=== PATIENT | female | born 1940 | race Caucasian/White ===

== ENCOUNTER 2021-07-08 13:12 | Inpatient (IN) | payer MEDICARE, OTHER ==
[~2021-07-08] VITALS: Ht 167.6 cm; Wt 65.9 kg
[~2021-07-08 13:12] MED LIST: LISI-790 PO; PRED10TA PO; ROSU40TA22 PO
[2021-07-08] MEDS ORDERED: dexamethasone sod phosphate 10mg/ml inj IV STA (14:03)
[2021-07-08] MEDS ORDERED: normal saline 1000ML IV soln IVB ONE (14:05)
[2021-07-08] MEDS ORDERED: ondansetron/PF 4mg/2ml inj IV ONE (14:05)
[2021-07-08] MEDS ORDERED: CASIRIVIMAB/IMDEVIMAB inject. 10 ML in normal saline 100ml IV soln 100 ML IV ONE (14:05)
[2021-07-08 15:46] LABS: BASOPHILS % (AUTO) 0.1 % (0-1); EOSINOPHILS % (AUTO) 0 % (0-6); HEMATOCRIT 32.8 % (35.0-45.0); HEMOGLOBIN 11.3 g/dl (12.0-16.0); LYMPHOCYTES # (AUTO) 0.2 X10'3 (1.1-4.8); LYMPHOCYTES % (AUTO) 2.5 % (21-51); MEAN CORPUSCULAR HEMOGLOBIN 28.5 PG (27.0-31.0); MEAN CORPUSCULAR HGB CONC 34.4 g/dL (33.0-36.5); MEAN CORPUSCULAR VOLUME 82.7 FL (78-98); MEAN PLATELET VOLUME 7.3 FL (7.4-10.4); MONOCYTES # (AUTO) 0.3 X10'3 (0-0.9); MONOCYTES % (AUTO) 4.1 % (2-12); NEUTROPHILS # (AUTO) 7.5 X10'3 (1.8-7.7); NEUTROPHILS % (AUTO) 93.3 % (42-75); PLATELET COUNT 243 X10'3 (140-440); RED BLOOD COUNT 3.97 X10'6 (4.20-5.60); RED CELL DISTRIBUTION WIDTH 13.4 % (11.5-14.5)
[2021-07-08] MEDS ORDERED: ALBUTEROL INHALER 1 PUFF/90 MCG INHALER IH PRN (15:50)
[2021-07-08 16:03] LABS: ALANINE AMINOTRANSFERASE 83 U/L (12-78); ALBUMIN 2.9 G/DL (3.4-5.0); ALBUMIN/GLOBULIN RATIO 0.7 (1.1-1.5); ALKALINE PHOSPHATASE 93 IU/L (46-116); ANION GAP 11 (8-16); ASPARTATE AMINO TRANSFERASE 100 U/L (10-37); BILIRUBIN,TOTAL 0.5 MG/DL (0.1-1.0); BLOOD UREA NITROGEN 17 MG/DL (7-18); BUN/CREATININE RATIO 15.9 (6.6-38.0); CALCIUM 8.4 MG/DL (8.5-10.1); CHLORIDE 101 MMOL/L (99-107); CREATININE 1.07 MG/DL (0.40-0.90); GLUCOSE 139 MG/DL (70-104); SODIUM 136 MMOL/L (135-145); TOTAL CARBON DIOXIDE 24.4 MMOL/L (24-32); TOTAL PROTEIN 6.8 G/DL (6.4-8.2); eGFR 50 ML/MIN
[2021-07-08] MEDS ORDERED: REMDESIVIR INJ 200 MG in normal saline 100ml IV soln 60 ML IV ONE (16:05)
[2021-07-08] MEDS ORDERED: magnesium hydroxide 30ml (MOM) UD suspension PO PRN (16:15)
[2021-07-08] MEDS ORDERED: morphine 2 MG/ML inj. syringe IV PRN ×2 (16:15)
[2021-07-08] MEDS ORDERED: ondansetron/PF 4mg/2ml inj IV PRN (16:15)
[2021-07-08] MEDS ORDERED: HYDROcodone/acetaminophen 5mg/325mg tablet PO PRN (16:15)
[2021-07-08] MEDS ORDERED: mag hydrox/Alum hydrox/simeth 30ml oral suspension PO PRN (16:15)
[2021-07-08] MEDS ORDERED: acetaminophen 325mg tablet PO PRN (16:15)
[2021-07-08 16:51] LABS: D-DIMER 0.86 MG/L FEU (0-0.50)
[2021-07-08] MEDS: normal saline 1000ml 1,000 ML IV SCH (17:09)
[2021-07-08] MEDS ORDERED: CefTRIAXone/D5W-Rocephin 1gm 50 ML IV ONE (17:15)
[2021-07-08 17:26] LABS: PHOSPHORUS 4.4 MG/DL (2.3-4.5); TROPONIN I < 0.04 NG/ML (0.0-0.05)
--- NOTE | 2021-07-08 18:21 | NUR ---
Received report with PARIS Ibarra, from Jorge TOLEDO, day shift.
[2021-07-08] MEDS ORDERED: dexamethasone sod phosphate 10mg/ml inj IV SCH (20:00)
[2021-07-08 20:50] VITALS: BP 126/53
--- NOTE | 2021-07-08 20:50 | NUR ---
PATIENT ADMITTED TO COVID ROOM 6A FROM ER FOR COVID + AND ACUTE RESPIRATORY FAILURE. PLACED COMFORTABLE IN BED. MOBILE HEART MONITOR FOR VITAL SIGNS.
[2021-07-08] MEDS: dexamethasone 6 MG in NS 50ml IV soln IV SCH (21:47)
[2021-07-08] MEDS: docusate sod 100mg capsule PO SCH (21:48)
[2021-07-09] VITALS (7 sets, daily range): BP systolic 115–126; BP diastolic 51–68
[2021-07-09] MEDS: normal saline 1000ml 1,000 ML IV SCH (03:18)
--- NOTE | 2021-07-09 06:30 | NUR ---
Problems reprioritized. Patient report given, questions answered & plan of care reviewed with AM RN.
[2021-07-09] MEDS ORDERED: atorvastatin 20mg tablet PO SCH (08:00)
[2021-07-09 09:03] LABS: BASOPHILS % (AUTO) 0.1 % (0-1); EOSINOPHILS % (AUTO) 0 % (0-6); HEMATOCRIT 30.3 % (35.0-45.0); HEMOGLOBIN 10.3 g/dl (12.0-16.0); LYMPHOCYTES # (AUTO) 0.2 X10'3 (1.1-4.8); LYMPHOCYTES % (AUTO) 2.2 % (21-51); MEAN CORPUSCULAR HEMOGLOBIN 28.3 PG (27.0-31.0); MEAN CORPUSCULAR HGB CONC 34.1 g/dL (33.0-36.5); MEAN CORPUSCULAR VOLUME 82.9 FL (78-98); MEAN PLATELET VOLUME 7.4 FL (7.4-10.4); MONOCYTES # (AUTO) 0.3 X10'3 (0-0.9); MONOCYTES % (AUTO) 2.5 % (2-12); NEUTROPHILS # (AUTO) 10.2 X10'3 (1.8-7.7); NEUTROPHILS % (AUTO) 95.2 % (42-75); PLATELET COUNT 248 X10'3 (140-440); RED BLOOD COUNT 3.66 X10'6 (4.20-5.60); RED CELL DISTRIBUTION WIDTH 13.2 % (11.5-14.5); WHITE BLOOD COUNT 10.7 X10'3 (4.5-11.0)
[2021-07-09 09:23] LABS: ALBUMIN 2.4 G/DL (3.4-5.0); ANION GAP 16 (8-16); BLOOD UREA NITROGEN 17 MG/DL (7-18); BUN/CREATININE RATIO 19.8 (6.6-38.0); CHLORIDE 105 MMOL/L (99-107); CREATININE 0.86 MG/DL (0.40-0.90); GLUCOSE 179 MG/DL (70-104); SODIUM 139 MMOL/L (135-145); TOTAL CARBON DIOXIDE 18.5 MMOL/L (24-32); eGFR 64 ML/MIN
[2021-07-09] MEDS: enoxaparin 40mg/0.4ml syringe SUBCUT SCH (09:38)
[2021-07-09] MEDS: lisinopril 5mg tablet PO SCH (09:38)
[2021-07-09] MEDS: docusate sod 100mg capsule PO SCH ×2 (09:39→20:00)
[2021-07-09] MEDS: dexamethasone 6 MG in NS 50ml IV soln IV SCH (09:39)
[2021-07-09] MEDS ORDERED: loperamide 2mg capsule PO PRN (10:45)
[2021-07-09] MEDS: REMDESIVIR INJ 100 MG in normal saline 100ml IV soln 80 ML IV SCH (11:13)
[2021-07-10 02:00] VITALS: BP 111/43
[2021-07-10 07:00] VITALS: BP 128/52
[2021-07-10 08:53] LABS: BASOPHILS % (AUTO) 0.1 % (0-1); EOSINOPHILS % (AUTO) 0 % (0-6); HEMATOCRIT 32.8 % (35.0-45.0); LYMPHOCYTES # (AUTO) 0.3 X10'3 (1.1-4.8); LYMPHOCYTES % (AUTO) 3.2 % (21-51); MEAN CORPUSCULAR HEMOGLOBIN 28.4 PG (27.0-31.0); MEAN CORPUSCULAR HGB CONC 33.4 g/dL (33.0-36.5); MEAN PLATELET VOLUME 7.6 FL (7.4-10.4); MONOCYTES # (AUTO) 0.3 X10'3 (0-0.9); MONOCYTES % (AUTO) 3.2 % (2-12); NEUTROPHILS # (AUTO) 8.4 X10'3 (1.8-7.7); NEUTROPHILS % (AUTO) 93.5 % (42-75); PLATELET COUNT 295 X10'3 (140-440); RED BLOOD COUNT 3.86 X10'6 (4.20-5.60); RED CELL DISTRIBUTION WIDTH 13.5 % (11.5-14.5)
[2021-07-10 09:08] LABS: ALBUMIN 2.2 G/DL (3.4-5.0); ANION GAP 12 (8-16); BLOOD UREA NITROGEN 23 MG/DL (7-18); BUN/CREATININE RATIO 22.8 (6.6-38.0); C-REACTIVE PROTEIN 5.05 MG/DL (0.0-0.5); CALCIUM 7.8 MG/DL (8.5-10.1); CHLORIDE 105 MMOL/L (99-107); CREATININE 1.01 MG/DL (0.40-0.90); GLUCOSE 193 MG/DL (70-104); POTASSIUM 3.6 MMOL/L (3.5-5.1); SODIUM 140 MMOL/L (135-145); TOTAL CARBON DIOXIDE 23.1 MMOL/L (24-32); eGFR 53 ML/MIN
[2021-07-10 09:20] LABS: D-DIMER 0.75 MG/L FEU (0-0.50)
[2021-07-10] MEDS: DEXAMETHASONE IV SCH (09:30)
[2021-07-10] MEDS: NORMAL SALINE IV SCH (09:30)
[2021-07-10] MEDS: docusate sod 100mg capsule PO SCH ×2 (09:31→19:23)
[2021-07-10] MEDS: lisinopril 5mg tablet PO SCH (09:31)
[2021-07-10] MEDS: enoxaparin 40mg/0.4ml syringe SUBCUT SCH (09:32)
[2021-07-10 11:00] VITALS: BP 151/62
--- NOTE | 2021-07-10 13:42 | NUR ---
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 Currently pt 0% first regular diet meals started yesterday refusing breakfast as well per EMR. Noted nausea and diarrhea persist at this time and pt receiving routine colace BID w/ PRN imodium available though not given. JESSICA d/w RN regarding stopping colace if diarrhea persists and MD agreeable. Pt has normal strength, no edema/wounds, no scaled wt this admit or prior scaled wt hx, and poor PO one days worth of meals thus far. 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 Will monitor for additional malnutrition criteria and nutrition intervention needs this admit. IF GI issues resolve and PO remains poor consider ONS supplementation as medically indicated. Addendum: 07/10/21 at [address] Amended: Links added.
[2021-07-10] MEDS: acetaminophen 325mg tablet PO PRN ×2 (13:47→21:55)
[2021-07-10 15:00] VITALS: BP 120/74
[2021-07-10] MEDS: REMDESIVIR INJ 100 MG in normal saline 100ml IV soln 80 ML IV SCH (15:48)
[2021-07-10 18:00] VITALS: BP 131/63
--- NOTE | 2021-07-10 18:00 | NUR ---
Patient in room COVID 06. I have received report from abundio tan and had the opportunity to ask questions and assume patient care.
--- NOTE | 2021-07-10 18:20 | NUR ---
Problems reprioritized. Patient report given, questions answered & plan of care reviewed with Britt TOLEDO.
[2021-07-11 02:00] VITALS: BP 117/52
--- NOTE | 2021-07-11 03:30 | NUR ---
patient titrated down to 4L nc because at 5-6L she sats at 98% . deep breathing exercises encouraged and return demonstartion performed. at 4L patient sats at 96% no ss of resp/ distress noted. will cont. to monitor.
[2021-07-11 07:00] VITALS: BP 112/52
[2021-07-11] MEDS: docusate sod 100mg capsule PO SCH ×2 (08:00→12:20)
[2021-07-11 08:29] LABS: BASOPHILS % (AUTO) 0.2 % (0-1); EOSINOPHILS % (AUTO) 0 % (0-6); HEMATOCRIT 29.9 % (35.0-45.0); HEMOGLOBIN 10.1 g/dl (12.0-16.0); LYMPHOCYTES # (AUTO) 0.3 X10'3 (1.1-4.8); LYMPHOCYTES % (AUTO) 4.1 % (21-51); MEAN CORPUSCULAR HEMOGLOBIN 28.6 PG (27.0-31.0); MEAN CORPUSCULAR HGB CONC 33.8 g/dL (33.0-36.5); MEAN CORPUSCULAR VOLUME 84.6 FL (78-98); MEAN PLATELET VOLUME 7.8 FL (7.4-10.4); MONOCYTES # (AUTO) 0.4 X10'3 (0-0.9); MONOCYTES % (AUTO) 4.4 % (2-12); NEUTROPHILS # (AUTO) 7.4 X10'3 (1.8-7.7); NEUTROPHILS % (AUTO) 91.3 % (42-75); PLATELET COUNT 285 X10'3 (140-440); RED BLOOD COUNT 3.53 X10'6 (4.20-5.60); RED CELL DISTRIBUTION WIDTH 13.3 % (11.5-14.5); WHITE BLOOD COUNT 8.1 X10'3 (4.5-11.0)
[2021-07-11 09:11] LABS: ALBUMIN 2.2 G/DL (3.4-5.0); ANION GAP 8 (8-16); BLOOD UREA NITROGEN 22 MG/DL (7-18); BUN/CREATININE RATIO 25.6 (6.6-38.0); C-REACTIVE PROTEIN 5.31 MG/DL (0.0-0.5); CALCIUM 8.2 MG/DL (8.5-10.1); CHLORIDE 109 MMOL/L (99-107); CREATININE 0.86 MG/DL (0.40-0.90); GLUCOSE 161 MG/DL (70-104); POTASSIUM 4.1 MMOL/L (3.5-5.1); SODIUM 140 MMOL/L (135-145); TOTAL CARBON DIOXIDE 23.3 MMOL/L (24-32); eGFR 64 ML/MIN
[2021-07-11] MEDS: acetaminophen 325mg tablet PO PRN (09:58)
[2021-07-11] MEDS: DEXAMETHASONE IV SCH (10:34)
[2021-07-11] MEDS: enoxaparin 40mg/0.4ml syringe SUBCUT SCH ×2 (10:34→20:16)
[2021-07-11] MEDS: NORMAL SALINE IV SCH (10:34)
[2021-07-11] MEDS: lisinopril 5mg tablet PO SCH (10:35)
[2021-07-11] MEDS: REMDESIVIR INJ 100 MG in normal saline 100ml IV soln 80 ML IV SCH (12:10)
[2021-07-11 15:00] VITALS: BP 132/68
[2021-07-11 18:00] VITALS: BP 117/57
--- NOTE | 2021-07-11 18:00 | NUR ---
Patient in room COVID 06. I have received report from tremaine tan and had the opportunity to ask questions and assume patient care.
--- NOTE | 2021-07-11 18:32 | NUR ---
Problems reprioritized. Patient report given, questions answered & plan of care reviewed with PARIS JARA.
[2021-07-11] MEDS: dexamethasone inj 8 MG in normal saline 50ml IV soln 50 ML IV SCH (20:16)
[2021-07-11 22:00] VITALS: BP 105/61
--- NOTE | 2021-07-11 23:50 | NUR ---
attempted to titrate oxygen down to to 4L patient desaturated down to 91%. increased back up to 5L. patient encouraged to do deep breathing exercises. returns dmeonstration successfully. no ss of distress noted. will cont . to monitor.
[2021-07-12] MEDS: acetaminophen 325mg tablet PO PRN ×2 (00:41→20:52)
[2021-07-12] MEDS: guaiFENesin/DM 10ml UD oral syrup PO PRN ×2 (00:41→11:01)
[2021-07-12 07:00] VITALS: BP 136/61
--- NOTE | 2021-07-12 07:18 | NUR ---
Patient in room COVID 06. I have received report from Night nurse and had the opportunity to ask questions and assume patient care.
[2021-07-12] MEDS ORDERED: dexamethasone inj 8 MG in normal saline 50ml IV soln 50 ML IV SCH (08:00)
[2021-07-12] MEDS: REMDESIVIR INJ 100 MG in normal saline 100ml IV soln 80 ML IV SCH (08:08)
[2021-07-12] MEDS: dexamethasone inj 8 MG in normal saline 50ml IV soln 50 ML IV SCH ×2 (08:08→20:52)
[2021-07-12] MEDS: docusate sod 100mg capsule PO SCH ×2 (08:08→20:58)
[2021-07-12] MEDS: lisinopril 5mg tablet PO SCH (08:10)
[2021-07-12] MEDS: enoxaparin 40mg/0.4ml syringe SUBCUT SCH ×2 (08:11→21:01)
[2021-07-12 08:15] LABS: BASOPHILS % (AUTO) 0 % (0-1); EOSINOPHILS % (AUTO) 0 % (0-6); HEMATOCRIT 30.3 % (35.0-45.0); HEMOGLOBIN 10.2 g/dl (12.0-16.0); LYMPHOCYTES # (AUTO) 0.2 X10'3 (1.1-4.8); MEAN CORPUSCULAR HEMOGLOBIN 28.5 PG (27.0-31.0); MEAN CORPUSCULAR HGB CONC 33.5 g/dL (33.0-36.5); MEAN CORPUSCULAR VOLUME 85.1 FL (78-98); MEAN PLATELET VOLUME 7.6 FL (7.4-10.4); MONOCYTES # (AUTO) 0.2 X10'3 (0-0.9); MONOCYTES % (AUTO) 2.7 % (2-12); NEUTROPHILS % (AUTO) 94.3 % (42-75); PLATELET COUNT 294 X10'3 (140-440); RED BLOOD COUNT 3.56 X10'6 (4.20-5.60); RED CELL DISTRIBUTION WIDTH 13.3 % (11.5-14.5); WHITE BLOOD COUNT 6.4 X10'3 (4.5-11.0)
[2021-07-12 08:16] LABS: ALBUMIN 2.1 G/DL (3.4-5.0); ANION GAP 7 (8-16); BLOOD UREA NITROGEN 16 MG/DL (7-18); BUN/CREATININE RATIO 21.6 (6.6-38.0); C-REACTIVE PROTEIN 5.15 MG/DL (0.0-0.5); CALCIUM 7.7 MG/DL (8.5-10.1); CHLORIDE 108 MMOL/L (99-107); CREATININE 0.74 MG/DL (0.40-0.90); GLUCOSE 191 MG/DL (70-104); POTASSIUM 4.2 MMOL/L (3.5-5.1); SODIUM 140 MMOL/L (135-145); TOTAL CARBON DIOXIDE 24.6 MMOL/L (24-32); eGFR 76 ML/MIN
[2021-07-12 08:17] LABS: D-DIMER 0.79 MG/L FEU (0-0.50)
[2021-07-12 11:00] VITALS: BP 129/67
[2021-07-12 15:00] VITALS: BP 136/71
[2021-07-12 18:00] VITALS: BP 129/69
--- NOTE | 2021-07-12 18:32 | NUR ---
Problems reprioritized. Patient report given, questions answered & plan of care reviewed with Latia Henson.
[2021-07-12 22:00] VITALS: BP 139/71
[2021-07-13 02:00] VITALS: BP 140/58
[2021-07-13 08:00] VITALS: BP 144/69
[2021-07-13] MEDS: lisinopril 5mg tablet PO SCH (08:00)
[2021-07-13 09:14] LABS: BASOPHILS % (AUTO) 0.1 % (0-1); EOSINOPHILS % (AUTO) 0 % (0-6); HEMOGLOBIN 11.2 g/dl (12.0-16.0); LYMPHOCYTES # (AUTO) 0.3 X10'3 (1.1-4.8); LYMPHOCYTES % (AUTO) 3.9 % (21-51); MEAN CORPUSCULAR HEMOGLOBIN 28.5 PG (27.0-31.0); MEAN CORPUSCULAR HGB CONC 33.8 g/dL (33.0-36.5); MEAN CORPUSCULAR VOLUME 84.2 FL (78-98); MEAN PLATELET VOLUME 7.7 FL (7.4-10.4); MONOCYTES # (AUTO) 0.2 X10'3 (0-0.9); MONOCYTES % (AUTO) 3.1 % (2-12); NEUTROPHILS # (AUTO) 6.8 X10'3 (1.8-7.7); NEUTROPHILS % (AUTO) 92.9 % (42-75); PLATELET COUNT 342 X10'3 (140-440); RED BLOOD COUNT 3.91 X10'6 (4.20-5.60); RED CELL DISTRIBUTION WIDTH 13.4 % (11.5-14.5); WHITE BLOOD COUNT 7.3 X10'3 (4.5-11.0)
[2021-07-13 09:33] LABS: ALBUMIN 2.3 G/DL (3.4-5.0); CALCIUM 8.2 MG/DL (8.5-10.1); CHLORIDE 105 MMOL/L (99-107); CREATININE 0.76 MG/DL (0.40-0.90); GLUCOSE 202 MG/DL (70-104); POTASSIUM 3.9 MMOL/L (3.5-5.1); TOTAL CARBON DIOXIDE 26.3 MMOL/L (24-32); eGFR 74 ML/MIN
[2021-07-13 09:38] LABS: ANION GAP 9 (8-16); BLOOD UREA NITROGEN 20 MG/DL (7-18); BUN/CREATININE RATIO 26.3 (6.6-38.0); SODIUM 140 MMOL/L (135-145)
[2021-07-13] MEDS: guaiFENesin/DM 10ml UD oral syrup PO PRN (10:10)
[2021-07-13] MEDS: docusate sod 100mg capsule PO SCH ×2 (10:10→20:52)
[2021-07-13] MEDS: dexamethasone inj 8 MG in normal saline 50ml IV soln 50 ML IV SCH ×2 (10:10→20:53)
[2021-07-13] MEDS: enoxaparin 40mg/0.4ml syringe SUBCUT SCH ×2 (10:11→20:54)
[2021-07-13 11:00] VITALS: BP 140/64
[2021-07-13 11:10] LABS: D-DIMER 1.13 MG/L FEU (0-0.50)
--- NOTE | 2021-07-13 11:26 | NUR ---
Initial: Pt admitted w/ +Covid and N/V/D per EMR. Pt noted w/ diarrhea on 07/10, though no BM documented since then. PO intake low, avg 22% x 9 meals of Regular diet not meeting needs, pt noted to be tired and SOB; may benefit from ONS at this time. Pt's glucose noted to be elevated since admission though no A1C available nor documentation of DM hx. Likely not d/t food as pt has not been eating much. No further N/V/D noted, will continue to monitor. Recommend: 1. Continue Regular diet as tolerated 2. Ensure Enlive TID to provide 1050kcals and 60g protein if consumed 100% 3. Bowel care per rx 4. Weekly wts Addendum: 07/13/21 at [address] Amended: Links added.
[2021-07-13] MEDS ORDERED: lactose-reduced food (Ensure Enlive) - 237ml bottle PO SCH (13:00)
--- NOTE | 2021-07-13 15:44 | NUR ---
PAGER ID: [phone] MESSAGE: Patricia Reji 6a covid - PT thinks pt. may have positive orthostatics Qshift orthostatics. BG elevated above 160, but she is not currently receiving any steroids. hyperglycemia Protocol? Nimo [id number]
[2021-07-13] MEDS ORDERED: dextrose 50%-water 50ml dispensing syringe IV PRN ×2 (15:50)
[2021-07-13] MEDS ORDERED: glucagon, human recombinant 1mg kit SUBCUT PRN (15:50)
[2021-07-13] MEDS ORDERED: MESSAGE TO PHARMACY PO ONE (15:50)
[2021-07-13] MEDS ORDERED: dextrose ORAL solution 15 GM/59 ML bottle PO PRN ×2 (15:50)
[2021-07-13 15:57] VITALS: BP 114/58
--- NOTE | 2021-07-13 16:17 | NUR ---
DC'd F/c. Pt. tolerated well. Pericare performed. Pt. aware to ask for assistance to use restroom and that she will be bladder scanned if she does not void within 6 hours.
[2021-07-13 16:38] LABS: HEMOGLOBIN A1C 6.4 % (4.5-6.2)
[2021-07-13 18:00] VITALS: BP 129/67
--- NOTE | 2021-07-13 18:28 | NUR ---
Gave report to Latia TOLEDO. She is aware that pt's f/c was removed at 4pm and that she is a check void.
[2021-07-13] MEDS: acetaminophen 325mg tablet PO PRN (21:20)
[2021-07-13] MEDS: insulin glargine (Lantus) pen - multi-dose SQ SCH (21:45)
[2021-07-14 06:00] VITALS: BP 149/68
[2021-07-14 08:19] LABS: BASOPHILS % (AUTO) 0.2 % (0-1); EOSINOPHILS % (AUTO) 0 % (0-6); HEMATOCRIT 31.7 % (35.0-45.0); HEMOGLOBIN 10.6 g/dl (12.0-16.0); LYMPHOCYTES # (AUTO) 0.4 X10'3 (1.1-4.8); MEAN CORPUSCULAR HGB CONC 33.5 g/dL (33.0-36.5); MEAN CORPUSCULAR VOLUME 83.6 FL (78-98); MEAN PLATELET VOLUME 7.5 FL (7.4-10.4); MONOCYTES # (AUTO) 0.4 X10'3 (0-0.9); NEUTROPHILS # (AUTO) 6.9 X10'3 (1.8-7.7); NEUTROPHILS % (AUTO) 89.8 % (42-75); PLATELET COUNT 329 X10'3 (140-440); RED BLOOD COUNT 3.79 X10'6 (4.20-5.60); RED CELL DISTRIBUTION WIDTH 13.3 % (11.5-14.5); WHITE BLOOD COUNT 7.7 X10'3 (4.5-11.0)
[2021-07-14] MEDS: docusate sod 100mg capsule PO SCH ×2 (08:19→21:29)
[2021-07-14] MEDS: dexamethasone inj 8 MG in normal saline 50ml IV soln 50 ML IV SCH ×2 (08:19→21:34)
[2021-07-14] MEDS: lisinopril 5mg tablet PO SCH (08:20)
[2021-07-14] MEDS: enoxaparin 40mg/0.4ml syringe SUBCUT SCH ×2 (08:20→21:30)
[2021-07-14 08:50] LABS: ALANINE AMINOTRANSFERASE 36 U/L (12-78); ALBUMIN 2.3 G/DL (3.4-5.0); ALBUMIN/GLOBULIN RATIO 0.7 (1.1-1.5); ALKALINE PHOSPHATASE 78 IU/L (46-116); ANION GAP 8 (8-16); ASPARTATE AMINO TRANSFERASE 16 U/L (10-37); BILIRUBIN,TOTAL 0.5 MG/DL (0.1-1.0); BLOOD UREA NITROGEN 20 MG/DL (7-18); BUN/CREATININE RATIO 30.3 (6.6-38.0); C-REACTIVE PROTEIN 1.56 MG/DL (0.0-0.5); CALCIUM 8.1 MG/DL (8.5-10.1); CHLORIDE 107 MMOL/L (99-107); CREATININE 0.66 MG/DL (0.40-0.90); GLUCOSE 138 MG/DL (70-104); POTASSIUM 4.3 MMOL/L (3.5-5.1); SODIUM 140 MMOL/L (135-145); TOTAL CARBON DIOXIDE 24.9 MMOL/L (24-32); TOTAL PROTEIN 5.6 G/DL (6.4-8.2); eGFR 87 ML/MIN
[2021-07-14 12:30] VITALS: BP 135/70
[2021-07-14 18:00] VITALS: BP 94/51
[2021-07-14 19:00] VITALS: BP_SYST 105; BP_SYST 127; BP_SYST 94; BP_DIAS 51; BP_DIAS 60; BP_DIAS 65
[2021-07-14] MEDS: insulin glargine (Lantus) pen - multi-dose SQ SCH (21:33)
[2021-07-14 22:00] VITALS: BP 124/60
[2021-07-15] VITALS (7 sets, daily range): BP systolic 97–128; BP diastolic 42–68
--- NOTE | 2021-07-15 06:58 | NUR ---
Patient in room COVID 06. I have received report from Jose Luis TOLEDO and had the opportunity to ask questions and assume patient care.
[2021-07-15 07:15] LABS: BASOPHILS % (AUTO) 0.1 % (0-1); EOSINOPHILS % (AUTO) 0 % (0-6); HEMATOCRIT 32.1 % (35.0-45.0); HEMOGLOBIN 10.8 g/dl (12.0-16.0); LYMPHOCYTES # (AUTO) 0.3 X10'3 (1.1-4.8); LYMPHOCYTES % (AUTO) 3.6 % (21-51); MEAN CORPUSCULAR HEMOGLOBIN 28.4 PG (27.0-31.0); MEAN CORPUSCULAR HGB CONC 33.7 g/dL (33.0-36.5); MEAN CORPUSCULAR VOLUME 84.2 FL (78-98); MEAN PLATELET VOLUME 7.3 FL (7.4-10.4); MONOCYTES # (AUTO) 0.3 X10'3 (0-0.9); MONOCYTES % (AUTO) 3.6 % (2-12); NEUTROPHILS # (AUTO) 8.2 X10'3 (1.8-7.7); NEUTROPHILS % (AUTO) 92.7 % (42-75); PLATELET COUNT 329 X10'3 (140-440); RED BLOOD COUNT 3.81 X10'6 (4.20-5.60); RED CELL DISTRIBUTION WIDTH 13.4 % (11.5-14.5); WHITE BLOOD COUNT 8.9 X10'3 (4.5-11.0)
[2021-07-15 07:28] LABS: D-DIMER 0.62 MG/L FEU (0-0.50)
[2021-07-15 07:36] LABS: ALANINE AMINOTRANSFERASE 32 U/L (12-78); ALBUMIN 2.2 G/DL (3.4-5.0); ALBUMIN/GLOBULIN RATIO 0.7 (1.1-1.5); ALKALINE PHOSPHATASE 72 IU/L (46-116); ANION GAP 9 (8-16); ASPARTATE AMINO TRANSFERASE 15 U/L (10-37); BILIRUBIN,TOTAL 0.5 MG/DL (0.1-1.0); BLOOD UREA NITROGEN 24 MG/DL (7-18); BUN/CREATININE RATIO 33.8 (6.6-38.0); C-REACTIVE PROTEIN 0.97 MG/DL (0.0-0.5); CALCIUM 7.9 MG/DL (8.5-10.1); CHLORIDE 106 MMOL/L (99-107); CREATININE 0.71 MG/DL (0.40-0.90); GLUCOSE 131 MG/DL (70-104); POTASSIUM 4.4 MMOL/L (3.5-5.1); SODIUM 141 MMOL/L (135-145); TOTAL CARBON DIOXIDE 25.8 MMOL/L (24-32); TOTAL PROTEIN 5.5 G/DL (6.4-8.2); eGFR 80 ML/MIN
[2021-07-15] MEDS: lisinopril 5mg tablet PO SCH (08:04)
[2021-07-15] MEDS: docusate sod 100mg capsule PO SCH ×2 (08:04→21:37)
[2021-07-15] MEDS: dexamethasone inj 8 MG in normal saline 50ml IV soln 50 ML IV SCH ×2 (08:04→21:37)
[2021-07-15] MEDS: enoxaparin 40mg/0.4ml syringe SUBCUT SCH ×2 (08:05→21:37)
[2021-07-15] MEDS: insulin Lispro (HumaLOG) vial - multi-dose SQ SCH (09:02)
[2021-07-15] MEDS: lactose-reduced food (Ensure Enlive) - 237ml bottle PO SCH (18:00)
--- NOTE | 2021-07-15 18:29 | NUR ---
Problems reprioritized. Patient report given, questions answered & plan of care reviewed with Latia TOLEDO.
[2021-07-15] MEDS: acetaminophen 325mg tablet PO PRN (19:11)
--- NOTE | 2021-07-15 21:11 | NUR ---
refused Addendum: 07/16/21 at 0511 by Latia Cunningham RN Amended: Links added.
[2021-07-15] MEDS: insulin glargine (Lantus) pen - multi-dose SQ SCH (21:53)
[2021-07-16] VITALS (7 sets, daily range): BP systolic 101–130; BP diastolic 44–58
--- NOTE | 2021-07-16 06:20 | NUR ---
Problems reprioritized. Patient report given, questions answered & plan of care reviewed with Kathy TOLEDO.
[2021-07-16] MEDS: dexamethasone inj 8 MG in normal saline 50ml IV soln 50 ML IV SCH ×2 (07:50→20:06)
[2021-07-16] MEDS: enoxaparin 40mg/0.4ml syringe SUBCUT SCH ×2 (07:51→20:06)
[2021-07-16] MEDS: lactose-reduced food (Ensure Enlive) - 237ml bottle PO SCH ×3 (07:51→18:04)
[2021-07-16] MEDS: docusate sod 100mg capsule PO SCH ×2 (07:51→20:05)
[2021-07-16] MEDS: insulin Lispro (HumaLOG) vial - multi-dose SQ SCH ×3 (09:02→18:52)
[2021-07-16 09:07] LABS: BASOPHILS % (AUTO) 0.1 % (0-1); EOSINOPHILS % (AUTO) 0.2 % (0-6); HEMATOCRIT 33.4 % (35.0-45.0); HEMOGLOBIN 11.2 g/dl (12.0-16.0); LYMPHOCYTES # (AUTO) 0.3 X10'3 (1.1-4.8); LYMPHOCYTES % (AUTO) 3.7 % (21-51); MEAN CORPUSCULAR HEMOGLOBIN 28.3 PG (27.0-31.0); MEAN CORPUSCULAR HGB CONC 33.4 g/dL (33.0-36.5); MEAN CORPUSCULAR VOLUME 84.8 FL (78-98); MEAN PLATELET VOLUME 7.3 FL (7.4-10.4); MONOCYTES # (AUTO) 0.2 X10'3 (0-0.9); MONOCYTES % (AUTO) 2.5 % (2-12); NEUTROPHILS # (AUTO) 6.8 X10'3 (1.8-7.7); NEUTROPHILS % (AUTO) 93.5 % (42-75); PLATELET COUNT 312 X10'3 (140-440); RED BLOOD COUNT 3.95 X10'6 (4.20-5.60); RED CELL DISTRIBUTION WIDTH 13.7 % (11.5-14.5); WHITE BLOOD COUNT 7.2 X10'3 (4.5-11.0)
[2021-07-16 09:34] LABS: ALANINE AMINOTRANSFERASE 27 U/L (12-78); ALBUMIN 2.3 G/DL (3.4-5.0); ALBUMIN/GLOBULIN RATIO 0.7 (1.1-1.5); ALKALINE PHOSPHATASE 74 IU/L (46-116); ANION GAP 8 (8-16); ASPARTATE AMINO TRANSFERASE 18 U/L (10-37); BILIRUBIN,TOTAL 0.5 MG/DL (0.1-1.0); BLOOD UREA NITROGEN 28 MG/DL (7-18); BUN/CREATININE RATIO 36.4 (6.6-38.0); C-REACTIVE PROTEIN 1.23 MG/DL (0.0-0.5); CALCIUM 8.2 MG/DL (8.5-10.1); CHLORIDE 107 MMOL/L (99-107); CREATININE 0.77 MG/DL (0.40-0.90); GLUCOSE 131 MG/DL (70-104); POTASSIUM 4.5 MMOL/L (3.5-5.1); SODIUM 141 MMOL/L (135-145); TOTAL CARBON DIOXIDE 25.6 MMOL/L (24-32); TOTAL PROTEIN 5.7 G/DL (6.4-8.2); eGFR 73 ML/MIN
[2021-07-16 09:35] LABS: D-DIMER 0.61 MG/L FEU (0-0.50)
--- NOTE | 2021-07-16 10:16 | NUR ---
O2 Sat at rest on room air:93% If below 89%: Recovery O2 Sat at rest on ___LPM:___%:___% via (mask/nasal cannula, etc..) No further documentation is necessary. If O2 Sat did not drop below 89% on room air,ambulate patient on room air. O2 Sat while ambulating on room air:87% Recovery O2 Sat while ambulating on 2 LPM: 93% No further documentation is necessary. If patient does not drop below 89% while ambulating, he/she does not qualify for home O2.
--- NOTE | 2021-07-16 11:20 | NUR ---
Reassessment: Pt continues w/ low meal intake, avg 25% x 8 meals on CCHO diet, though RN reports pt consumed 100% of ONS today. Pt noted to be very weak, will send chopped meats w/ meals. RN also reports pt likes more fruits and vegetables, will honor preferences. LBM 07/15. Will continue to monitor PO trends. Recommend: 1. Continue CCHO diet as tolerated, chopped meats w/ meals 2. Ensure Enlive TID to provide 1050kcals and 60g protein if consumed 100% 3. Bowel care per rx 4. Weekly wts Addendum: 07/16/21 at [address] Amended: Links added.
--- NOTE | 2021-07-16 15:01 | NUR ---
Patient's son, Teofilo Mendoza, called for updates. 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 He feels able to care for his mom at home with home health, but is okay with rehab if that is what his mother wants.
[2021-07-16] MEDS: acetaminophen 325mg tablet PO PRN ×2 (17:21→23:22)
--- NOTE | 2021-07-16 18:15 | NUR ---
Patient in room COVID 06. I have received report from PARIS Chavez and had the opportunity to ask questions and assume patient care.
--- NOTE | 2021-07-16 18:22 | NUR ---
Problems reprioritized. Patient report given, questions answered & plan of care reviewed with Nini TOLEDO.
[2021-07-16] MEDS: insulin glargine (Lantus) pen - multi-dose SQ SCH (21:18)
[2021-07-17 02:00] VITALS: BP 130/51
--- NOTE | 2021-07-17 06:29 | NUR ---
Problems reprioritized. Patient report given, questions answered & plan of care reviewed with PARIS AMAYA.
--- NOTE | 2021-07-17 06:39 | NUR ---
Patient in room COVID 06. I have received report from PARIS RANGEL and had the opportunity to ask questions and assume patient care.
[2021-07-17 07:00] VITALS: BP_SYST 115; BP_SYST 119; BP_SYST 122; BP_DIAS 53; BP_DIAS 58
[2021-07-17 07:12] LABS: BASOPHILS % (AUTO) 0.1 % (0-1); EOSINOPHILS % (AUTO) 0.2 % (0-6); HEMATOCRIT 31.9 % (35.0-45.0); HEMOGLOBIN 10.6 g/dl (12.0-16.0); LYMPHOCYTES # (AUTO) 0.4 X10'3 (1.1-4.8); LYMPHOCYTES % (AUTO) 5.1 % (21-51); MEAN CORPUSCULAR HEMOGLOBIN 28.2 PG (27.0-31.0); MEAN CORPUSCULAR HGB CONC 33.2 g/dL (33.0-36.5); MEAN PLATELET VOLUME 7.2 FL (7.4-10.4); MONOCYTES # (AUTO) 0.3 X10'3 (0-0.9); MONOCYTES % (AUTO) 3.6 % (2-12); NEUTROPHILS # (AUTO) 6.7 X10'3 (1.8-7.7); PLATELET COUNT 294 X10'3 (140-440); RED BLOOD COUNT 3.75 X10'6 (4.20-5.60); RED CELL DISTRIBUTION WIDTH 13.8 % (11.5-14.5); WHITE BLOOD COUNT 7.3 X10'3 (4.5-11.0)
[2021-07-17 07:32] LABS: D-DIMER 0.45 MG/L FEU (0-0.50)
[2021-07-17 07:37] LABS: ALANINE AMINOTRANSFERASE 23 U/L (12-78); ALBUMIN 2.2 G/DL (3.4-5.0); ALBUMIN/GLOBULIN RATIO 0.7 (1.1-1.5); ALKALINE PHOSPHATASE 66 IU/L (46-116); ANION GAP 7 (8-16); ASPARTATE AMINO TRANSFERASE 12 U/L (10-37); BILIRUBIN,TOTAL 0.4 MG/DL (0.1-1.0); C-REACTIVE PROTEIN 0.77 MG/DL (0.0-0.5); CHLORIDE 106 MMOL/L (99-107); GLUCOSE 127 MG/DL (70-104); POTASSIUM 4.4 MMOL/L (3.5-5.1); SODIUM 139 MMOL/L (135-145); TOTAL CARBON DIOXIDE 25.8 MMOL/L (24-32); TOTAL PROTEIN 5.5 G/DL (6.4-8.2)
[2021-07-17 07:43] LABS: BLOOD UREA NITROGEN 29 MG/DL (7-18); BUN/CREATININE RATIO 39.7 (6.6-38.0); CREATININE 0.73 MG/DL (0.40-0.90); eGFR 77 ML/MIN
[2021-07-17] MEDS: dexamethasone inj 8 MG in normal saline 50ml IV soln 50 ML IV SCH (07:50)
[2021-07-17] MEDS: docusate sod 100mg capsule PO SCH ×2 (07:50→19:37)
[2021-07-17] MEDS: enoxaparin 40mg/0.4ml syringe SUBCUT SCH ×2 (07:51→19:37)
[2021-07-17] MEDS: lactose-reduced food (Ensure Enlive) - 237ml bottle PO SCH ×3 (08:01→17:43)
[2021-07-17] MEDS: insulin Lispro (HumaLOG) vial - multi-dose SQ SCH ×3 (08:17→18:56)
--- NOTE | 2021-07-17 08:48 | NUR ---
PAGER ID: [phone] MESSAGE: [facility] 6A-MARTINEZ BENITEZ- DURING ORTHOSTATIC VITALS PATIENT DID C/O DIZZINESS AND LIGHTHEADEDNESS WITH STANDING. LYING 115/53 55, SITTING 119/58 80, STAND 122/58 58. - JEFF [id number]
--- NOTE | 2021-07-17 12:18 | NUR ---
Patient has been on RA at 95%, but upon ambulating patient desaturated down to 88% and c/o being dizzy and lightheaded. Dr Moreno was present.
[2021-07-17 12:41] VITALS: BP 141/78
[2021-07-17 17:48] VITALS: BP 114/53
[2021-07-17 18:00] VITALS: BP 111/54
--- NOTE | 2021-07-17 18:27 | NUR ---
Problems reprioritized. Patient report given, questions answered & plan of care reviewed with PARIS crowe.
[2021-07-17] MEDS: dexamethasone inj 6 MG in normal saline 50ml IV soln 50 ML IV SCH (20:07)
[2021-07-17] MEDS: insulin glargine (Lantus) pen - multi-dose SQ SCH (21:17)
[2021-07-17] MEDS: acetaminophen 325mg tablet PO PRN (21:42)
[2021-07-17 22:00] VITALS: BP 109/53
[2021-07-18 02:00] VITALS: BP 105/49
--- NOTE | 2021-07-18 06:31 | NUR ---
Problems reprioritized. Patient report given, questions answered & plan of care reviewed with PARIS Pereira.
[2021-07-18] MEDS: enoxaparin 40mg/0.4ml syringe SUBCUT SCH (07:33)
[2021-07-18] MEDS: docusate sod 100mg capsule PO SCH (07:33)
[2021-07-18] MEDS: dexamethasone inj 6 MG in normal saline 50ml IV soln 50 ML IV SCH (07:33)
[2021-07-18 08:00] VITALS: BP 108/65
[2021-07-18] MEDS: lactose-reduced food (Ensure Enlive) - 237ml bottle PO SCH ×2 (08:32→13:22)
[2021-07-18 08:44] LABS: BASOPHILS % (AUTO) 0.1 % (0-1); EOSINOPHILS % (AUTO) 0.1 % (0-6); HEMATOCRIT 35.2 % (35.0-45.0); HEMOGLOBIN 11.4 g/dl (12.0-16.0); LYMPHOCYTES # (AUTO) 0.6 X10'3 (1.1-4.8); LYMPHOCYTES % (AUTO) 5.9 % (21-51); MEAN CORPUSCULAR HGB CONC 32.5 g/dL (33.0-36.5); MEAN PLATELET VOLUME 7.4 FL (7.4-10.4); MONOCYTES # (AUTO) 0.3 X10'3 (0-0.9); MONOCYTES % (AUTO) 2.8 % (2-12); NEUTROPHILS # (AUTO) 9.9 X10'3 (1.8-7.7); NEUTROPHILS % (AUTO) 91.1 % (42-75); PLATELET COUNT 332 X10'3 (140-440); RED BLOOD COUNT 4.09 X10'6 (4.20-5.60); WHITE BLOOD COUNT 10.9 X10'3 (4.5-11.0)
[2021-07-18] MEDS: insulin Lispro (HumaLOG) vial - multi-dose SQ SCH ×2 (08:57→13:32)
[2021-07-18 09:01] LABS: ALANINE AMINOTRANSFERASE 26 U/L (12-78); ALBUMIN 2.4 G/DL (3.4-5.0); ALBUMIN/GLOBULIN RATIO 0.7 (1.1-1.5); ALKALINE PHOSPHATASE 69 IU/L (46-116); ANION GAP 8 (8-16); ASPARTATE AMINO TRANSFERASE 15 U/L (10-37); BILIRUBIN,TOTAL 0.6 MG/DL (0.1-1.0); BLOOD UREA NITROGEN 30 MG/DL (7-18); C-REACTIVE PROTEIN 0.43 MG/DL (0.0-0.5); CALCIUM 8.3 MG/DL (8.5-10.1); CHLORIDE 103 MMOL/L (99-107); CREATININE 0.81 MG/DL (0.40-0.90); D-DIMER 0.44 MG/L FEU (0-0.50); GLUCOSE 83 MG/DL (70-104); POTASSIUM 4.4 MMOL/L (3.5-5.1); SODIUM 140 MMOL/L (135-145); TOTAL CARBON DIOXIDE 29.2 MMOL/L (24-32); eGFR 68 ML/MIN
--- NOTE | 2021-07-18 09:28 | NUR ---
Patient without FC. No charting on when DC'd. Upon reviewing notes there is a note stating it was removed on 07/13/21 at 0400.
[2021-07-18 10:32] VITALS: BP 102/47
--- NOTE | 2021-07-18 14:49 | NUR ---
O2 Sat at rest on room air: 95% If below 89%: Recovery O2 Sat at rest on ___LPM:___%:___% via (mask/nasal cannula, etc..) No further documentation is necessary. If O2 Sat did not drop below 89% on room air,ambulate patient on room air. O2 Sat while ambulating on room air: 86% Recovery O2 Sat while ambulating on 2 LPM: 92% No further documentation is necessary. If patient does not drop below 89% while ambulating, he/she does not qualify for home O2.
[2021-07-18] MEDS ORDERED: PRED20TA PO (15:05)
[2021-07-18 15:15] VITALS: BP 107/53
--- NOTE | 2021-07-18 17:52 | NUR ---
Family discharged and waiting on a ride. 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 Patient IV is discontinued. Patient has all belongings. Education completed and acknowledgement completed verbally. O2 delivered and educated on. Patient aware to push button on O2 twice to turn off and turn on.
== END 2021-07-18 19:21 | disposition home health service (06) | DRG 177 ==
LOC: ER 13:13 → ED HOLD 16:17 → COVID IP 20:45
PROVIDERS: ADMIT Internal Medicine; ATTEND Internal Medicine
PROC: XW033E5 Introduction of Remdesivir Anti-infective into Peripheral Vein, Percutaneous Approach, New Technology Group 5 (ICD-10-PCS; principal; 2021-07-08)
PROC: 5A0935A Assistance with Respiratory Ventilation, Less than 24 Consecutive Hours, High Flow/Velocity Cannula (ICD-10-PCS; 2021-07-12)
DX: U07.1 COVID-19 (principal); J96.01 Acute respiratory failure with hypoxia; J12.82 Pneumonia due to coronavirus disease 2019; D68.69 Other thrombophilia; M35.3 Polymyalgia rheumatica; I10 Essential (primary) hypertension; E78.5 Hyperlipidemia, unspecified; I95.1 Orthostatic hypotension; R74.01 Elevation of levels of liver transaminase levels; Z90.49 Acquired absence of other specified parts of digestive tract; Z79.899 Other long term (current) drug therapy; Z99.81 Dependence on supplemental oxygen
CPT/HCPCS: 36415; 71045; 80048; 80053; 82948; 83036; 83880; 84100; 84145; 84484; 85025; 85379; 86140; 87081; 93005; 93306; 94760; 96374; 96375; 97110; 97161; 97530; 99285; G0378; J0696; J1100; J1650; J1815; J2405; J7030; M0243; Q0244